=== PATIENT | male | born 1995 | race Caucasian/White ===

== ENCOUNTER 2019-07-09 08:46 | Emergency (ER) | payer SELFPAY ==
[~2019-07-09] VITALS: Ht 167.6 cm; Wt 91.4 kg
[2019-07-09] MEDS ORDERED: MORPHINE SULFATE 4 MG/ML, 1ML IVPush PRN (09:30)
[2019-07-09] MEDS ORDERED: SODIUM CHLORIDE 0.9% 1,000ML IVBOLUS ONE (09:30)
[2019-07-09] MEDS ORDERED: SODIUM CHLORIDE FLUSH 10ML SYR IVF ONE (09:30)
[2019-07-09] MEDS ORDERED: ONDANSETRON 2MG/ML, 2ML IVPush ONE (09:30)
[2019-07-09] MEDS ORDERED: ACETAMINOPHEN 500 MG TABLET PO ONE (09:30)
[2019-07-09] MEDS ORDERED: ONDANSETRON 2MG/ML, 2ML ONE (09:50)
--- NOTE | 2019-07-09 09:59 | NUR ---
TASK RN: FLUID BOLUS BEING ADMINISTERED PER EMAR. PT REFUSED ZOFRAN. TYLENOL REQUESTED WITH PHARMACY.
[2019-07-09] MEDS ORDERED: ACETAMINOPHEN 500 MG TABLET ONE (10:13)
--- NOTE | 2019-07-09 10:19 | NUR ---
PT TO IMAGING.
--- NOTE | 2019-07-09 10:27 | NUR ---
TYLENOL HELD PER PHYSCIAN ORDERS BECAUSE PT CONDITION CHANGED, TEMP 98.1
[2019-07-09 10:33] LABS: MICROSCOPIC NOT IND
[2019-07-09 10:40] LABS: CULTURE INDICATED? NO
[2019-07-09 10:56] LABS: BASOPHILS # (AUTO) 0.03 x10^3/uL (0-0.1); BASOPHILS % (AUTO) 0 % (0-1); EOSINOPHILS # (AUTO) 0.04 x10^3/uL (0-0.4); EOSINOPHILS % (AUTO) 0 % (1-7); LYMPHOCYTES # (AUTO) 1.68 x10^3/uL (1-3.4); LYMPHOCYTES % (AUTO) 18 % (22-44); MD NO; MEAN CORPUSCULAR HEMOGLOBIN 29.4 pg (27.5-34.5); MEAN CORPUSCULAR HGB CONC 33.6 g/dL (33.2-36.2); MEAN CORPUSCULAR VOLUME 87.4 fL (81-97); MEAN PLATELET VOLUME 10.8 fL (7.4-10.4); MONOCYTES # (AUTO) 0.51 x10^3/uL (0.2-0.8); MONOCYTES % (AUTO) 6 % (2-9); NEUTROPHILS # (AUTO) 7.06 x10^3/uL (1.8-6.8); NEUTROPHILS % (AUTO) 76 % (42-75); PLATELET COUNT 237 x10^3/uL (130-400); RED BLOOD COUNT 5.23 x10^6/uL (4.38-5.82)
[2019-07-09 11:08] LABS: ALANINE AMINOTRANSFERASE 22 U/L (12-78); ALBUMIN 3.9 g/dL (3.4-5.0); ANION GAP 5 mmol/L (5-15); CALCIUM 8.4 mg/dL (8.5-10.1); CHLORIDE 110 mmol/L (98-107); CREATININE 0.84 mg/dL (0.7-1.3)
[2019-07-09 11:10] LABS: ALKALINE PHOSPHATASE 70 U/L (45-117); BILIRUBIN,TOTAL 0.5 mg/dL (0.2-1.0); TOTAL PROTEIN 7.8 g/dL (6.4-8.2)
--- NOTE | 2019-07-09 11:25 | NUR ---
PT LAYING IN BED, NO SIGNS OF DISTRESS, VSS, NO COMPLAINTS. WILL CONTINUE TO MONITOR.
[2019-07-09 11:50] VITALS: BP 113/68
--- NOTE | 2019-07-09 11:51 | NUR ---
PT DENIED WANTING INTERPRETUR THROUGHOUT VISIT, OFFERED MULTIPLE TIMES.
== END 2019-07-09 11:53 | disposition home or self-care (01) ==
LOC: ED 09:25
DX: S39.012A Strain of muscle, fascia and tendon of lower back, initial encounter (principal); X58.XXXA Exposure to other specified factors, initial encounter; Y93.89 Activity, other specified; Y92.89 Other specified places as the place of occurrence of the external cause; Y99.8 Other external cause status
CPT/HCPCS: 36415; 71045; 74176; 80053; 81003; 85025; 99285; J7030

== ENCOUNTER 2020-07-30 17:54 | Emergency (ER) | payer OTHER ==
[~2020-07-30] VITALS: Ht 175.3 cm; Wt 93.5 kg
[2020-07-30 17:58] VITALS: BP 141/85
== END 2020-07-30 18:49 | disposition home or self-care (01) ==
LOC: ED 18:21
DX: K64.5 Perianal venous thrombosis (principal)
CPT/HCPCS: 99283